=== PATIENT | female | born 1960 | race American Indian/Alaskan Native ===

== ENCOUNTER 2018-10-27 16:30 | Emergency (ER) | payer MEDICAID ==
[2018-10-27 16:38] VITALS: BP 170/75
--- NOTE | 2018-10-27 16:43 | Event Note ---
ED Screening Note Date of service: 10/27/18 Time: 16:39 ED Screening Note: 58 y/o female comes in for SOB when she was coming in to see her new grand baby. It was noted by a hospital employee that she was in distress in the [place]uly lobby of the hospital. Patient was bought to the ER by me and Annette MORRISSEY. Patient had her vitals checked and decided to leave AMA. Paperwork complete and patient left. I did discuss with patient that she is breathing fast but she feels that she will be OK. This initial assessment/diagnostic orders/clinical plan/treatment(s) is/are subject to change based on patients health status, clinical progression and re- assessment by fellow clinical providers in the ED. Further treatment and workup at subsequent clinical providers discretion. Patient/guardian urged not to elope from the ED as their condition may be serious if not clinically assessed and managed. Initial orders include:
== END 2018-10-27 17:00 | disposition left against medical advice (07) ==
LOC: ED 16:30
DX: R06.00 Dyspnea, unspecified (principal); Z53.21 Procedure and treatment not carried out due to patient leaving prior to being seen by health care provider